=== PATIENT | male | born 1990 | race Caucasian/White ===

== ENCOUNTER 2016-12-10 12:18 | Emergency (ER) | payer OTHER ==
[2016-12-10 12:51] VITALS: BP 138/69; PULSE 84; RESP 16; TEMP 99.2
--- NOTE | 2016-12-10 13:15 | ED ---
Upper Extremity HPI - General Chief Complaint: Extremity Injury, Upper Stated Complaint: Fall from Ladder 2 days ago Time Seen by Provider: 12/10/16 13:00 Source: patient Mode of arrival: ambulatory Limitations: no limitations - History of Present Illness Initial Comments: This is a pleasant 26-year-old male who presents emergency department after injuring his right shoulder when he fell off a ladder on Wednesday. He states he put his hand out to catch himself and now has pain in the anterior aspect of the right shoulder which is sharp in nature. Pain is increased with movement. Patient denies any proximal or distal pain. No distal paresthesias. No other orthopedic injuries. No neck pain. There is no head injury. He denies any chest pain or shortness of breath. Patient has had some problems with the shoulder previously. Patient states she's been using icy hot for pain. He does state that the injury was work-related. Patient is right-hand dominant. MD Complaint: Injury to:: right, shoulder - Related Data Previous Rx's Medication Instructions Recorded Levofloxacin [Levaquin] 500 mg PO DAILY #9 tab 02/23/15 Acetaminophen-Codeine 300-30mg 1 each PO Q4H PRN #20 tablet 12/10/16 [Tylenol w/codeine #3] Naproxen [Naprosyn] 500 mg PO Q12HR #24 tab 12/10/16 Allergies Allergy/AdvReac Type Severity Reaction Status Date / Time Penicillins Allergy Unknown Verified 12/10/16 12:48 Review of Systems ROS Statement: Those systems with pertinent positive or pertinent negative responses have been documented in the HPI. ROS Other: All systems not noted in ROS Statement are negative. Past Medical History Past Medical History: No Reported History History of Any Multi-Drug Resistant Organisms: None Reported Past Surgical History: No Surgical Hx Reported Past Psychological History: No Psychological Hx Reported Smoking Status: Current every day smoker Past Alcohol Use History: None Reported Past Drug Use History: None Reported General Exam - General Exam Comments Initial Comments: Well-developed, well-nourished 26-year-old male in no distress Limitations: no limitations General appearance: alert, in no apparent distress Head exam: Present: atraumatic, normocephalic, normal inspection Eye exam: Present: normal appearance, EOMI. Absent: scleral icterus, conjunctival injection, periorbital swelling ENT exam: Present: normal exam Neck exam: Present: normal inspection. Absent: tenderness, meningismus, lymphadenopathy Respiratory exam: Present: normal lung sounds bilaterally. Absent: respiratory distress, wheezes, rales, rhonchi, stridor Cardiovascular Exam: Present: regular rate, normal rhythm, normal heart sounds. Absent: systolic murmur, diastolic murmur, rubs, gallop, clicks GI/Abdominal exam: Present: soft. Absent: distended, tenderness, guarding, rebound, rigid Extremities exam: Present: normal inspection, full ROM (With pain), normal capillary refill, other (Patient does have tenderness near the right before meals joint. However there is no evidence of step-off or crepitus). Absent: tenderness, pedal edema, joint swelling, calf tenderness Back exam: Present: normal inspection Neurological exam: Present: alert, oriented X3, CN II-XII intact Psychiatric exam: Present: normal affect, normal mood Skin exam: Present: warm, dry, intact, normal color. Absent: rash Course Vital Signs 12/10/16 12:48 Temperature 99.2 F Pulse Rate 84 Respiratory 16 Rate Blood Pressure 138/69 O2 Sat by Pulse 99 Oximetry Medical Decision Making - Medical Decision Making Plain film x-ray of the right shoulder read by me reveals no acute pathology. There is no dislocation. No foreign body. No fracture. Awaiting radiology interpretation I did review all findings with the patient. Patient understands. We'll treat the patient conservatively with anti-inflammatory medication, heat, and follow- up with orthopedics if needed patient knows he can return to the ER at anytime if any problems or difficulties arise or the symptomology worsens. Disposition Clinical Impression: Right shoulder strain Disposition: HOME SELF-CARE Condition: Good Instructions: Rotator Cuff Injury (ED) Additional Instructions: Follow-up with your regular physician for reevaluation. Follow-up with the orthopedic physician if symptoms do not improve. Return to the ER at anytime if any problems or difficulties arise. Apply moist heat 20 minutes on and off at least 4 times per day. Prescriptions: Acetaminophen-Codeine 300-30mg [Tylenol w/codeine #3] 1 each PO Q4H PRN #20 tablet PRN Reason: Pain Naproxen [Naprosyn] 500 mg PO Q12HR #24 tab Referrals: Hakan Camacho MD [Primary Care Provider] - 1-2 days Quique Yanez MD [Medical Doctor] - 12/15/16 Time of Disposition: 13:28
--- NOTE | 2016-12-10 13:40 | XR ---
EXAMINATION TYPE: XR shoulder limited RT DATE OF EXAM: 12/10/2016 1:14 PM COMPARISON: NONE HISTORY: Pain TECHNIQUE: Shoulder examined in 2 views. FINDINGS: The humeral head articulates with the glenoid. The acromio-clavicular junction is normal. No acute fractures or dislocations are evident. A follow up study can be performed 7-10 days from acute trauma for continued pain. IMPRESSION: 1. Normal 2 view Shoulder
== END 2016-12-10 13:38 | disposition home or self-care (01) ==
LOC: EC 12:18
DX: S46.911A Strain of unspecified muscle, fascia and tendon at shoulder and upper arm level, right arm, initial encounter (principal); F17.200 Nicotine dependence, unspecified, uncomplicated; Z88.0 Allergy status to penicillin; W11.XXXA Fall on and from ladder, initial encounter; Y99.0 Civilian activity done for income or pay
CPT/HCPCS: 99283

== ENCOUNTER 2020-04-08 | Emergency (ER) | payer OTHER ==
--- NOTE | 2020-04-08 13:16 | ED ---
General Adult HPI - General Chief complaint: Dental/Oral Stated complaint: abscess Time Seen by Provider: 04/08/20 13:06 Source: patient, RN notes reviewed, old records reviewed Mode of arrival: ambulatory Limitations: no limitations - History of Present Illness Initial comments: 30-year-old male with several days of facial swelling, tooth pain. Patient has fractured tooth 11 and 12. This is the site of pain and inflammation. Denies fever. He is otherwise healthy, no history of diabetes. No fevers. No chills. - Related Data Previous Rx's Medication Instructions Recorded Levofloxacin [Levaquin] 500 mg PO DAILY #9 tab 02/23/15 Acetaminophen-Codeine 300-30mg 1 each PO Q4H PRN #20 tablet 12/10/16 [Tylenol w/codeine #3] Naproxen [Naprosyn] 500 mg PO Q12HR #24 tab 12/10/16 Clindamycin [Cleocin] 450 mg PO Q8HR #21 cap 04/08/20 Ibuprofen [Motrin] 600 mg PO Q8HR PRN #24 tab 04/08/20 Allergies Allergy/AdvReac Type Severity Reaction Status Date / Time Penicillins Allergy Unknown Verified 04/08/20 12:56 Review of Systems ROS Statement: Those systems with pertinent positive or pertinent negative responses have been documented in the HPI. ROS Other: All systems not noted in ROS Statement are negative. Past Medical History Past Medical History: No Reported History History of Any Multi-Drug Resistant Organisms: None Reported Past Surgical History: No Surgical Hx Reported Past Psychological History: No Psychological Hx Reported Smoking Status: Current every day smoker, Vaper Past Alcohol Use History: None Reported Past Drug Use History: None Reported General Exam Limitations: no limitations General appearance: alert, in no apparent distress Head exam: Present: atraumatic, normocephalic Eye exam: Present: normal appearance ENT exam: Present: other (Mentation, fractured tooth #11 and 10 with inflammation at the gumline, no drainable abscess. Minimal facial swelling and lymphadenopathy, submandibular) Neck exam: Present: lymphadenopathy (Left submandibular) Respiratory exam: Present: normal lung sounds bilaterally. Absent: respiratory distress, wheezes Cardiovascular Exam: Present: regular rate, normal rhythm GI/Abdominal exam: Present: soft. Absent: distended, tenderness Course Vital Signs 04/08/20 12:55 Temperature 97.9 F Pulse Rate 72 Respiratory 20 Rate Blood Pressure 147/92 O2 Sat by Pulse 98 Oximetry Medical Decision Making - Medical Decision Making Patient is started on clindamycin he does have a penicillin ALLERGY. He is also given Motrin for pain. He is encouraged to follow-up with his dentist as soon as possible. Disposition Clinical Impression: Dental abscess, Fracture of tooth Disposition: HOME SELF-CARE Condition: Good Instructions (If sedation given, give patient instructions): Toothache (ED), Dental Abscess (ED) Additional Instructions: Please follow up with your dentist as soon as possible. Prescriptions: Clindamycin [Cleocin] 450 mg PO Q8HR #21 cap Ibuprofen [Motrin] 600 mg PO Q8HR PRN #24 tab PRN Reason: Pain Is patient prescribed a controlled substance at d/c from ED?: No Referrals: None,Stated [Primary Care Provider] - 1-2 days Time of Disposition: 13:16
== END 2020-04-08 13:32 | disposition home or self-care (01) ==
CPT/HCPCS: 99283

== ENCOUNTER 2021-12-19 20:19 | Inpatient (IN) | payer OTHER ==
[2021-12-19] MEDS ORDERED: ACETAMINOPHEN TAB 500 MG TAB PO STA (20:45)
[2021-12-19] MEDS ORDERED: IPRATROPIUM-ALBUTEROL 3 ML NEB INHALATION STA ×2 (20:47→23:36)
--- NOTE | 2021-12-19 20:51 | ED ---
URI HPI - General Chief Complaint: Upper Respiratory Infection Stated Complaint: SOB,Fever Time Seen by Provider: 12/19/21 20:31 Source: patient, RN notes reviewed Mode of arrival: ambulatory Limitations: no limitations - History of Present Illness Initial Comments: This is a pleasant 31-year-old male who complains of a fever, cough, shortness of breath for one week. Patient also complaining of body aches. Shaking chills. Patient has a history of bacterial pneumonia. Patient COVID-19 last fall. Patient is a cigarette smoker. No headache, no changes in vision or hearing, no sore throat or difficulty with speech, no neck pain, no shortness of breath, no abdominal pain, no nausea or vomiting, no changes in urination or bowel movements, no numbness or tingling, no extremity pain, no skin rashes or lesions. Cough is nonproductive MD Complaint: fever, cough - Related Data Home Medications Medication Instructions Recorded Confirmed Acetaminophen [Tylenol] 1,000 mg PO Q6HR PRN 12/19/21 12/19/21 Previous Rx's Medication Instructions Recorded Ibuprofen [Motrin] 600 mg PO Q8HR PRN #24 tab 04/08/20 Allergies Allergy/AdvReac Type Severity Reaction Status Date / Time Penicillins Allergy Unknown Verified 12/19/21 21:56 Childhood Review of Systems ROS Statement: Those systems with pertinent positive or pertinent negative responses have been documented in the HPI. ROS Other: All systems not noted in ROS Statement are negative. Past Medical History Past Medical History: No Reported History History of Any Multi-Drug Resistant Organisms: None Reported Past Surgical History: No Surgical Hx Reported Past Psychological History: No Psychological Hx Reported Smoking Status: Current every day smoker, Vaper Past Alcohol Use History: Occasional Past Drug Use History: None Reported General Exam - General Exam Comments Initial Comments: Patient appears to be ill but not toxic. Patient in no respiratory distress as I enter the room. Cranial nerves II through XII intact. Capillary refill less than 2 seconds. Limitations: no limitations General appearance: alert, in distress Head exam: Present: atraumatic, normocephalic, normal inspection Eye exam: Present: normal appearance, PERRL, EOMI. Absent: scleral icterus, conjunctival injection, periorbital swelling ENT exam: Present: normal exam, mucous membranes moist Neck exam: Present: normal inspection, full ROM. Absent: tenderness, meni ngismus, lymphadenopathy Respiratory exam: Present: rhonchi (Scattered bilateral), chest wall tenderness. Absent: respiratory distress, wheezes, rales, stridor, accessory muscle use, decreased breath sounds, prolonged expiratory Cardiovascular Exam: Present: normal rhythm, tachycardia, normal heart sounds. Absent: systolic murmur, diastolic murmur, rubs, gallop, clicks GI/Abdominal exam: Present: soft, normal bowel sounds. Absent: distended, tenderness, guarding, rebound, rigid Extremities exam: Present: normal inspection, full ROM, normal capillary refill. Absent: tenderness, pedal edema, joint swelling, calf tenderness Back exam: Present: normal inspection Neurological exam: Present: alert, oriented X3, CN II-XII intact Psychiatric exam: Present: normal affect, normal mood Skin exam: Present: warm, dry, intact, normal color. Absent: rash Course Vital Signs 12/19/21 12/19/21 12/19/21 20:23 21:38 21:49 Temperature 101.3 F H Pulse Rate 108 H 96 96 Respiratory 20 Rate Blood Pressure 129/76 O2 Sat by Pulse 97 Oximetry 12/19/21 12/19/21 12/19/21 22:00 23:00 23:45 Temperature 99.4 F 98.9 F Pulse Rate 105 H 90 92 Respiratory 24 20 Rate Blood Pressure 129/91 127/87 O2 Sat by Pulse 95 97 Oximetry 12/19/21 23:57 Temperature Pulse Rate 96 Respiratory Rate Blood Pressure O2 Sat by Pulse Oximetry - Reevaluation(s) Reevaluation #1: 12/19/21 23:03 Patient reevaluated and is currently unchanged. We'll order a breathing treatment. Antibiotics ordered for pneumonia protocol. Patient has multifocal pneumonia. - Consultations Consultation #1: Patient will be admitted to Dr. Hill with consultation for pulmonary. Antibiotics, breathing treatments ordered. Admission for multilobar pneumonia Medical Decision Making - Medical Decision Making Patient presents symptomology consistent with viral respiratory infection to include body aches, fever, shaking chills and nonproductive cough. Patient states he occasionally will cough up some sputum but is a cigarette smoker. History of COVID-19 last fall as well as previous bacterial pneumonia. The case was discussed in detail with ED attending physician. Presentation, findings, treatment plan discussed in detail. Dr. Odell We'll admit the patient to Dr. Hill for further evaluation. Consultation for pulmonary. Multifocal pneumonia. Stressed out findings with the patient. All questions answered. Patient endorsed to the ED attending physician at 3 AM. Awaiting callback from the admitting physician. - Lab Data Result diagrams: 12/19/21 21:01 12/19/21 21:01 Lab Results 12/19/21 12/19/21 12/19/21 Range/Units 21:01 21: 21: WBC 9.9 (3.8-10.6) k/uL RBC 4.32 (4.30-5.90) m/uL Hgb 13.9 (13.0-17.5) gm/dL Hct 39.5 (39.0-53.0) % MCV 91.4 (80.0-100.0) fL MCH 32.2 (25.0-35.0) pg MCHC 35.2 (31.0-37.0) g/dL RDW 13.5 (11.5-15.5) % Plt Count 235 (150-450) k/uL MPV 8.4 Neutrophils % 80 % Lymphocytes % 12 % Monocytes % 5 % Eosinophils % 1 % Basophils % 1 % Neutrophils # 8.0 H (1.3-7.7) k/uL Lymphocytes # 1.1 (1.0-4.8) k/uL Monocytes # 0.5 (0-1.0) k/uL Eosinophils # 0.1 (0-0.7) k/uL Basophils # 0.1 (0-0.2) k/uL Manual Slide Review Performed Toxic Granulation Present Poikilocytosis (manual Present Sodium 135 L (137-145) mmol/L Potassium 3.2 L (3.5-5.1) mmol/L Chloride 103 (98-107) mmol/L Carbon Dioxide 27 (22-30) mmol/L Anion Gap 5 mmol/L BUN 17 (9-20) mg/dL Creatinine 0.86 (0.66-1.25) mg/dL Est GFR (CKD-EPI)AfAm >90 (>60 ml/min/1.73 sqM) Est GFR (CKD-EPI)NonAf >90 (>60 ml/min/1.73 sqM) Glucose 111 H (74-99) mg/dL Plasma Lactic Acid Yanick 1.1 (0.7-2.0) mmol/L Calcium 8.2 L (8.4-10.2) mg/dL Total Bilirubin 0.5 (0.2-1.3) mg/dL AST 78 H (17-59) U/L ALT 74 H (4-49) U/L Alkaline Phosphatase 104 (38-126) U/L C-Reactive Protein (<1.0) mg/dL Total Protein 5.5 L (6.3-8.2) g/dL Albumin 2.9 L (3.5-5.0) g/dL Coronavirus (PCR) (Not Detectd) Influenza Type A RNA (Not Detectd) Influenza Type B (PCR) (Not Detectd) 12/19/21 12/19/21 12/19/21 Range/Units 21:01 21:01 21:01 WBC (3.8-10.6) k/uL RBC (4.30-5.90) m/uL Hgb (13.0-17.5) gm/dL Hct (39.0-53.0) % MCV (80.0-100.0) fL MCH (25.0-35.0) pg MCHC (31.0-37.0) g/dL RDW (11.5-15.5) % Plt Count (150-450) k/uL MPV Neutrophils % % Lymphocytes % % Monocytes % % Eosinophils % % Basophils % % Neutrophils # (1.3-7.7) k/uL Lymphocytes # (1.0-4.8) k/uL Monocytes # (0-1.0) k/uL Eosinophils # (0-0.7) k/uL Basophils # (0-0.2) k/uL Manual Slide Review Toxic Granulation Poikilocytosis (manual Sodium (137-145) mmol/L Potassium (3.5-5.1) mmol/L Chloride (98-107) mmol/L Carbon Dioxide (22-30) mmol/L Anion Gap mmol/L BUN (9-20) mg/dL Creatinine (0.66-1.25) mg/dL Est GFR (CKD-EPI)AfAm (>60 ml/min/1.73 sqM) Est GFR (CKD-EPI)NonAf (>60 ml/min/1.73 sqM) Glucose (74-99) mg/dL Plasma Lactic Acid Yanick (0.7-2.0) mmol/L Calcium (8.4-10.2) mg/dL Total Bilirubin (0.2-1.3) mg/dL AST (17-59) U/L ALT (4-49) U/L Alkaline Phosphatase (38-126) U/L C-Reactive Protein 23.6 H (<1.0) mg/dL Total Protein (6.3-8.2) g/dL Albumin (3.5-5.0) g/dL Coronavirus (PCR) Not Detected (Not Detectd) Influenza Type A RNA Not Detected (Not Detectd) Influenza Type B (PCR) Not Detected (Not Detectd) - Radiology Data Radiology results: report reviewed, image reviewed Disposition Clinical Impression: Multifocal pneumonia, Cigarette smoker, Hypokalemia Disposition: ADMITTED IP TO THIS [facility] Time of Disposition: 23:44
[2021-12-19 21:17] LABS: Basophils # (A) 0.1 k/uL (0-0.2); Basophils % (A) 1 %; Eosinophils # (A) 0.1 k/uL (0-0.7); Eosinophils % (A) 1 %; HCT 39.5 % (39.0-53.0); HGB 13.9 gm/dL (13.0-17.5); Lymphocytes # (A) 1.1 k/uL (1.0-4.8); Lymphocytes % (A) 12 %; MCH 32.2 pg (25.0-35.0); MCHC 35.2 g/dL (31.0-37.0); MCV 91.4 fL (80.0-100.0); Mean Platelet Volume 8.4; Monocytes # (A) 0.5 k/uL (0-1.0); Monocytes % (A) 5 %; Neutrophils % (A) 80 %; Platelet Count 235 k/uL (150-450); RBC 4.32 m/uL (4.30-5.90); RDW 13.5 % (11.5-15.5); WBC 9.9 k/uL (3.8-10.6)
[2021-12-19 21:27] LABS: ALT 74 U/L (4-49); AST 78 U/L (17-59); African American GFR (CKD) >90 (>60 ml/min/1.73 sqM); Albumin 2.9 g/dL (3.5-5.0); Alkaline Phosphatase 104 U/L (38-126); Anion Gap 5 mmol/L; Blood Urea Nitrogen 17 mg/dL (9-20); Calcium 8.2 mg/dL (8.4-10.2); Carbon Dioxide 27 mmol/L (22-30); Chloride 103 mmol/L (98-107); Glucose 111 mg/dL (74-99); Non-African American GFR(CKD) >90 (>60 ml/min/1.73 sqM); Potassium 3.2 mmol/L (3.5-5.1); Sodium 135 mmol/L (137-145); Total Bilirubin 0.5 mg/dL (0.2-1.3); Total Protein 5.5 g/dL (6.3-8.2)
[2021-12-19] MEDS: SODIUM CHLORIDE 0.9% 500 ML 500 ML IV SCH ×2 (21:29→22:27)
[2021-12-19 21:33] LABS: Poikilocytosis (M) Present; Toxic Granulation Present
--- NOTE | 2021-12-19 21:38 | XR ---
EXAMINATION TYPE: XR chest 2V DATE OF EXAM: 12/19/2021 9:03 PM COMPARISON: 02/23/2015 TECHNIQUE: XR chest 2V Frontal and lateral views of the chest. CLINICAL INDICATION:Male, 31 years old with history of cough; FINDINGS: Lungs/Pleura: Airspace opacities most pronounced in the left but also thought to be present in the ri ght lower lobe. Pulmonary vascularity: Unremarkable. Heart/mediastinum: Cardiomediastinal silhouette is unremarkable. Musculoskeletal: No acute osseous pathology. IMPRESSION: Multifocal pneumonia.
[2021-12-19] MEDS ORDERED: PNEUMONIA PROTOCOL UTILIZED 1 EACH MISC PO PRN (23:00)
[2021-12-19] MEDS ORDERED: Potassium Replacement Protocol 1 EACH MISC MISCELLANE PRN (23:37)
[2021-12-19] MEDS ORDERED: ALBUTEROL NEBULIZED 2.5 MG/3 ML INHALATION PRN (23:39)
[2021-12-19] MEDS: SODIUM CHLORIDE 0.9% 1,000 ML IV SCH (23:52)
[2021-12-19] MEDS: ENOXAPARIN 40 MG/0.4 ML SYRINGE SQ SCH (23:58)
[2021-12-20] MEDS: POTASSIUM CHLORIDE ER 20 MEQ TAB.ER PO SCH ×2 (00:12→01:49)
[2021-12-20 06:38] LABS: HCT 35.9 % (39.0-53.0); HGB 12.3 gm/dL (13.0-17.5); MCH 31.5 pg (25.0-35.0); MCHC 34.3 g/dL (31.0-37.0); MCV 91.8 fL (80.0-100.0); Mean Platelet Volume 7.9; Platelet Count 203 k/uL (150-450); RBC 3.91 m/uL (4.30-5.90); RDW 12.9 % (11.5-15.5); WBC 9.6 k/uL (3.8-10.6)
[2021-12-20 06:57] LABS: ALT 67 U/L (4-49); AST 66 U/L (17-59); African American GFR (CKD) >90 (>60 ml/min/1.73 sqM); Albumin 2.5 g/dL (3.5-5.0); Alkaline Phosphatase 85 U/L (38-126); Anion Gap 6 mmol/L; Blood Urea Nitrogen 16 mg/dL (9-20); Calcium 7.7 mg/dL (8.4-10.2); Carbon Dioxide 26 mmol/L (22-30); Chloride 105 mmol/L (98-107); Glucose 102 mg/dL (74-99); Non-African American GFR(CKD) >90 (>60 ml/min/1.73 sqM); Potassium 3.2 mmol/L (3.5-5.1); Sodium 137 mmol/L (137-145); Total Bilirubin 0.5 mg/dL (0.2-1.3)
[2021-12-20 07:20] LABS: Band Neutrophils % 7 %; Lymphocytes # (M) 1.06 k/uL (1.0-4.8); Metamyelocytes # (M) 0.29 k/uL (0); Metamyelocytes % 3 %; Monocytes # (M) 1.15 k/uL (0-1.0); Neutrophils % (M) 67 %; Nucleated Red Blood Cells 0 /100 WBC (0-0); Total Cells Counted 100
[2021-12-20] MEDS: IPRATROPIUM-ALBUTEROL 3 ML NEB INHALATION SCH ×4 (07:36→20:29)
--- NOTE | 2021-12-20 07:44 | XR ---
EXAMINATION TYPE: XR chest 2V DATE OF EXAM: 12/20/2021 COMPARISON: Chest x-ray 12/19/2021 HISTORY: Pneumonia TECHNIQUE: Frontal and lateral views of the chest are obtained. FINDINGS: Bilateral airspace disease is again seen. There is no evident pneumothorax or pleural effu taylor, cardiac mediastinal silhouette is stable. Bones are unchanged. IMPRESSION: Bilateral pneumonia
[2021-12-20] MEDS ORDERED: ALBUTEROL NEBULIZED 2.5 MG/3 ML INHALATION SCH (08:00)
[2021-12-20] MEDS ORDERED: AZITHROMYCIN 500 MG TAB PO SCH (09:00)
[2021-12-20] MEDS: SODIUM CHLORIDE 0.9% 1,000 ML IV SCH ×2 (09:20→18:18)
[2021-12-20] MEDS: AZITHROMYCIN 500 MG TAB PO SCH (09:20)
[2021-12-20] MEDS: BENZOCAINE/MENTHOL LOZENG 1 EACH LOZENGE MUCOUS MEM PRN ×2 (12:58→18:23)
--- NOTE | 2021-12-20 14:32 | P.CNPUL ---
History of Present Illness Consult date: 12/20/21 Requesting physician: Hakan Hill Reason for consult: dyspnea, pneumonia, abnormal CXR/CT Chief complaint: Shortness of breath, cough, congestion History of present illness: This a very pleasant 31-year-old male patient with no primary care provider, no significant medical history. He does carry a 15 year smoking history at 1 pack per day. He also states he was hospitalized as a child on chronic multiple occasions for pneumonia. He presented here to the emergency room yesterday with increasing shortness of breath cough and congestion, bodyaches fever and chills for 8 days prior to arrival. He denied any significant sick contacts or travel. White count 9.6. Hemoglobin 12.3. Platelets 203. Sodium 137. Potassium 3.2. Chloride 105. Bicarb 26. BUN 16. Creatinine 0.8. Lactic acid 1.1. AST 66, ALT 67. Pro-calcitonin 0.61. Influenza screen negative. Coronavirus by PCR ne gative. Legionella antigen is pending. He's been initiated on ceftriaxone and azithromycin along with bronchodilators. He is seen today in consultation on the regular medical floor. He is currently sitting up in a chair at the bedside. Awake and alert in no acute distress. Maintaining O2 saturations in the 90s on room air. He's been afebrile. Slightly tachycardic. Sputum culture pending. Review of Systems REVIEW OF SYSTEMS: CONSTITUTIONAL: Positive for fever and chills. Denies any recent significant weight loss or weight gain. EYES: Denies change in vision. EARS, NOSE, MOUTH, THROAT: Denies headaches, denies sore throat. CARDIOVASCULAR: Denies chest pain, palpitations or syncopal episodes. RESPIRATORY: Positive for shortness of breath, cough, congestion no hemoptysis. GASTROINTESTINAL: Denies change in appetite, denies abdominal pain GENITOURINARY: Denies hematuria, denies infections. MUSKULOSKELETAL: Denies pain, denies swelling. INTEGUMENTARY: Denies rash, denies eczema. NEUROLOGICAL: Denies recent memory loss, no recent seizure activity. PSYCHIATRIC: Denies anxiety, denies depression. HEMATOLOGIC/LYMPHATIC: Denies anemia, denies enlarged lymph nodes. Past Medical History Past Medical History: No Reported History Additional Past Medical History / Comment(s): COVID Fall 2020, pneumonia History of Any Multi-Drug Resistant Organisms: None Reported Past Surgical History: No Surgical Hx Reported Past Anesthesia/Blood Transfusion Reactions: No Reported Reaction Past Psychological History: No Psychological Hx Reported Smoking Status: Current every day smoker, Vaper Past Alcohol Use History: Occasional Past Drug Use History: None Reported Medications and Allergies Home Medications Medication Instructions Recorded Confirmed Type Ibuprofen [Motrin] 600 mg PO Q8HR PRN #24 tab 04/08/20 12/19/21 Rx Acetaminophen [Tylenol] 1,000 mg PO Q6HR PRN 12/19/21 12/19/21 History Allergies Allergy/AdvReac Type Severity Reaction Status Date / Time Penicillins Allergy Unknown Verified 12/19/21 21:56 Childhood Physical Exam Vitals: Vital Signs Temp Pulse Pulse Resp BP BP Pulse Ox 12/20/21 11:20 70 18 12/20/21 11:12 72 18 12/20/21 08:00 98.6 F 102 H 16 144/83 99 12/20/21 07:45 74 18 12/20/21 07:36 84 18 96 12/20/21 06:00 98.7 F 79 20 129/85 97 12/20/21 04:00 87 20 128/84 97 12/19/21 23:57 96 12/19/21 23:45 92 12/19/21 23:00 98.9 F 90 20 127/87 97 12/19/21 22:00 99.4 F 105 H 24 129/91 95 12/19/21 21:49 96 12/19/21 21:38 96 12/19/21 20:23 101.3 F H 108 H 20 129/76 97 Intake and Output 12/19/21 12/20/21 12/20/21 22:59 06:59 14:59 Other: # Voids 1 Weight 104.326 kg 104.326 kg GENERAL EXAM: Alert, active, pleasant 31-year-old gentleman, on room air, comfortable in no apparent distress. HEAD: Normocephalic. EYES: Normal reaction of pupils, equal size. NOSE: Clear with pink turbinates. THROAT: No erythema or exudates. NECK: No masses, no JVD. CHEST: No chest wall deformity. LUNGS: Equal air entry with coarse rhonchi bilaterally. CVS: S1 and S2 normal with no audible murmur, regular rhythm. ABDOMEN: No hepatosplenomegaly, normal bowel sounds, no guarding or rigidity. SPINE: No scoliosis or deformity SKIN: No rashes CENTRAL NERVOUS SYSTEM: No focal deficits, tone is normal in all 4 extremities. EXTREMITIES: There is no peripheral edema. No clubbing, no cyanosis. Peripheral pulses are intact. Results - Laboratory Findings CBC and BMP: 12/20/21 06:24 12/20/21 06:24 Abnormal lab findings: Abnormal Labs 12/19/21 12/19/21 12/19/21 21:01 21:01 21:01 RBC Hgb Hct Neutrophils # 8.0 H Monocytes # (Manual) Metamyelocytes # (Man) Sodium 135 L Potassium 3.2 L Glucose 111 H Calcium 8.2 L AST 78 H ALT 74 H C-Reactive Protein Total Protein 5.5 L Albumin 2.9 L Procalcitonin 0.61 H 12/19/21 12/20/21 12/20/21 21:01 06:24 06:24 RBC 3.91 L Hgb 12.3 L Hct 35.9 L Neutrophils # Monocytes # (Manual) 1.15 H Metamyelocytes # (Man) 0.29 H Sodium Potassium 3.2 L Glucose 102 H Calcium 7.7 L AST 66 H ALT 67 H C-Reactive Protein 23.6 H Total Protein 5.0 L Albumin 2.5 L Procalcitonin - Diagnostic Findings Chest x-ray: image reviewed Assessment and Plan Assessment: 1 Acute community-acquired pneumonia. Influenza screen negative. COVID-19 screen negative. Legionella antigen pending. Sputum culture pending. 2 History of hospitalizations for pneumonia as a child 3 Chronic and ongoing tobacco dependence of 10 years Plan: The patient was seen and evaluated Chest x-ray and labs reviewed Continue ceftriaxone and azithromycin Continue bronchodilators Educated regarding the importance of complete smoking cessation NicoDerm patch will be offered Follow-up chest x-ray in the a.m. We will continue to follow and make further recommendations based on his clinical status I have personally seen and examined the patient, performed the documentation and the assessment and plan as written. Number of minutes spent on the visit: 20.
[2021-12-20] MEDS: NICOTINE 14MG/24HR PATCH TRANSDERM SCH (15:03)
[2021-12-20] MEDS ORDERED: IBUPROFEN 400 MG TAB PO PRN (18:38)
[2021-12-20] MEDS: ACETAMINOPHEN TAB 325 MG TAB PO PRN (19:38)
[2021-12-20] MEDS: ENOXAPARIN 40 MG/0.4 ML SYRINGE SQ SCH (21:30)
--- NOTE | 2021-12-20 23:19 | P.HPIM ---
History of Present Illness H&P Date: 12/20/21 Chief Complaint: SOB Patient is a 31-year-old male without significant past medical history, history of COVID-19 in fall 2020, currently everyday smoker and occasional alcohol use presents to ER with complaints of increasing shortness of breath, cough congestion for the past 1 week. Patient is also having subjective fevers and chills and body aches. Denies any sputum production. Patient was also having diarrhea. Tmax 101. 3 on admission Chest x-ray showed multifocal pneumonia. Repeat chest x-ray this morning showed bilateral pneumonia. Laboratory data showed WBC 9.9 hemoglobin 13.9 and platelets 235 Sodium 135 potassium 3.2 chloride 103 bicarbonate 27 BUN 17 and creatinine 0.86 and lactic acid 1.1 AST 78 ALT 74 alk phos 104 CRP 23.6 and procalcitonin level is 0.61 COVID-19 PCR not detected. Legionella antigen negative. Influenza a and B- Review of Systems Constitutional: Patient does have subjective fever and chills. Generalized weakness and malaise. Abdomen: Patient denied nausea vomiting. Patient does have diarrhea and no abdominal pain. Cardiovascular: Patient denies any chest pain or short of breath no palpitations. Respiratory: Patient does have cough congestion and shortness of breath. Neurologic: Patient denied any numbness or tingling headache. Musculoskeletal: Patient denies any complaints of joint swelling or deformity. Skin: Negative Psychiatric: Negative Endocrine: No heat or cold intolerance. No recent weight gain. Genitourinary: No dysuria or hematuria. All other 14 point ROS negative except the above Past Medical History Past Medical History: No Reported History History of Any Multi-Drug Resistant Organisms: None Reported Past Surgical History: No Surgical Hx Reported Past Psychological History: No Psychological Hx Reported Smoking Status: Current every day smoker, V[employer] Past Alcohol Use History: Occasional Past Drug Use History: None Reported Medications and Allergies Home Medications Medication Instructions Recorded Confirmed Type Ibuprofen [Motrin] 600 mg PO Q8HR PRN #24 tab 04/08/20 12/19/21 Rx Acetaminophen [Tylenol] 1,000 mg PO Q6HR PRN 12/19/21 12/19/21 History Allergies Allergy/AdvReac Type Severity Reaction Status Date / Time Penicillins Allergy Unknown Verified 12/19/21 21:56 Childhood Physical Exam Vitals: Vital Signs Temp Pulse Pulse Resp BP BP Pulse Ox 12/20/21 08:00 98.6 F 102 H 16 144/83 99 12/20/21 07:45 74 18 12/20/21 07:36 84 18 96 12/20/21 06:00 98.7 F 79 20 129/85 97 12/20/21 04:00 87 20 128/84 97 12/19/21 23:57 96 12/19/21 23:45 92 12/19/21 23:00 98.9 F 90 20 127/87 97 12/19/21 22:00 99.4 F 105 H 24 129/91 95 12/19/21 21:49 96 12/19/21 21:38 96 12/19/21 20:23 101.3 F H 108 H 20 129/76 97 Intake and Output 12/19/21 12/20/21 12/20/21 22:59 06:59 14:59 Other: # Voids 1 Weight 104.326 kg PHYSICAL EXAMINATION: Patient is lying in the bed comfortably, no acute distress, awake alert and oriented.. HEENT: Normocephalic. Neck is supple. Pupils reactive. Nostrils clear. Oral cavity is moist. Neck reveals no JVD, carotid bruits, or thyromegaly. CHEST EXAMINATION: Trachea is central. Symmetrical expansion. Bilateral crackles and no wheezing. Coarse breath sounds.. CARDIAC: Normal S1, S2 with no gallops. No murmurs ABDOMEN: Soft. Bowel sounds normal. No organomegaly. No abdominal bruits. Extremities: reveal no edema. No clubbing or cyanosis Neurologically awake, alert, oriented x3 with well-coordinated movements. No focal deficits noted Skin: No rash or skin lesions. Psychiatric: Cooperative. Nonsuicidal Musculoskeletal: No joint swelling or deformity. Normal range of motion. Results CBC & Chem 7: 12/20/21 06:24 12/20/21 06:24 Labs: Abnormal Lab Results - Last 24 Hours (Table) 12/19/21 12/19/21 12/19/21 Range/Units 21:01 21:01 21:01 RBC (4.30-5.90) m/uL Hgb (13.0-17.5) gm/dL Hct (39.0-53.0) % Neutrophils # 8.0 H (1.3-7.7) k/uL Monocytes # (Manual) (0-1.0) k/uL Metamyelocytes # (Man) (0) k/uL Sodium 135 L (137-145) mmol/L Potassium 3.2 L (3.5-5.1) mmol/L Glucose 111 H (74-99) mg/dL Calcium 8.2 L (8.4-10.2) mg/dL AST 78 H (17-59) U/L ALT 74 H (4-49) U/L C-Reactive Protein (<1.0) mg/dL Total Protein 5.5 L (6.3-8.2) g/dL Albumin 2.9 L (3.5-5.0) g/dL Procalcitonin 0.61 H (0.02-0.09) ng/mL 12/19/21 12/20/21 12/20/21 Range/Units 21:01 06:24 06:24 RBC 3.91 L (4.30-5.90) m/uL Hgb 12.3 L (13.0-17.5) gm/dL Hct 35.9 L (39.0-53.0) % Neutrophils # (1.3-7.7) k/uL Monocytes # (Manual) 1.15 H (0-1.0) k/uL Metamyelocytes # (Man) 0.29 H (0) k/uL Sodium (137-145) mmol/L Potassium 3.2 L (3.5-5.1) mmol/L Glucose 102 H (74-99) mg/dL Calcium 7.7 L (8.4-10.2) mg/dL AST 66 H (17-59) U/L ALT 67 H (4-49) U/L C-Reactive Protein 23.6 H (<1.0) mg/dL Total Protein 5.0 L (6.3-8.2) g/dL Albumin 2.5 L (3.5-5.0) g/dL Procalcitonin (0.02-0.09) ng/mL Microbiology - Last 24 Hours (Table) 12/19/21 23:34 Sputum Culture - Preliminary Sputum Thrombosis Risk Factor Assmnt - DVT/VTE Prophylaxis DVT/VTE Prophylaxis: Pharmacologic Prophylaxis ordered Assessment and Plan Assessment: Acute bilateral pneumonia. Likely community-acquired. Strep pneumo antigen pending and urine Legionella antigen negative. Sputum culture is pending. Elevated CRP level 23.6 and procalcitonin level 0.61 History of multiple hospitalizations as a child with pneumonia Ongoing nicotine addiction. Patient uses vapor History of COVID-19 in fall 2020 Hypokalemia replaced. Mild transaminitis DVT prophylaxis with heparin subcu Plan: Patient will be continued on antibiotics in the form of ceftriaxone and azithromycin. Legionella antigen negative. Continue with duo nebs. Smoking cessation has been counseled extensively. Pulmonary is on board. Time with Patient: Greater than 30
[2021-12-21] MEDS: BENZOCAINE/MENTHOL LOZENG 1 EACH LOZENGE MUCOUS MEM PRN (00:26)
[2021-12-21] MEDS: ACETAMINOPHEN TAB 325 MG TAB PO PRN ×2 (04:16→08:43)
[2021-12-21] MEDS: SODIUM CHLORIDE 0.9% 1,000 ML IV SCH (05:48)
--- NOTE | 2021-12-21 07:19 | XR ---
EXAMINATION TYPE: XR chest 1V portable DATE OF EXAM: 12/21/2021 7:03 AM COMPARISON: Chest radiograph from one day prior. TECHNIQUE: XR chest 1V portable Frontal view of the chest. CLINICAL INDICATION:Male, 31 years old with history of Bilateral pneumonia; FINDINGS: Lungs/Pleura: Low lung volumes are present with similar appearance of multifocal airspace opacities g iven the low lung volumes. There is no evidence of pleural effusion, focal consolidation, or pneumoth orax. Pulmonary vascularity: Unremarkable. Heart/mediastinum: Cardiomediastinal silhouette is unremarkable. Musculoskeletal: No acute osseous pathology. IMPRESSION: Similar multifocal airspace opacities given phase of inspiration and low lung volumes..
[2021-12-21] MEDS: IPRATROPIUM-ALBUTEROL 3 ML NEB INHALATION SCH ×4 (07:55→21:21)
[2021-12-21] MEDS: AZITHROMYCIN 500 MG TAB PO SCH (08:37)
[2021-12-21] MEDS: NICOTINE 14MG/24HR PATCH TRANSDERM SCH (08:38)
[2021-12-21 09:22] LABS: African American GFR (CKD) 142.8 (60.0-200.0); Albumin/Globulin Ratio 1.44 (1.60-3.17); Anion Gap 14.2 mmol/L (10.00-18.00); BUN/Creat Ratio 15.63 Ratio (12.00-20.00); Blood Urea Nitrogen 11.3 mg/dL (9.0-27.0); Carbon Dioxide 21.1 mmol/L (20.0-27.5); Globulin 2.1 g/dL (1.6-3.3); Non-African American GFR(CKD) 123.2 (60.0-200.0); Potassium 3.5 mmol/L (3.5-5.5); Total Bilirubin 0.2 mg/dL (0.30-1.20); Total Protein 5.1 g/dL (6.2-8.2)
[2021-12-21 10:43] LABS: HCT 34.6 % (39.6-50.0); HGB 11.7 g/dL (13.0-17.0); MCHC 33.8 g/dL (32.0-37.0); MCV 91.5 fL (80.0-97.0); Mean Platelet Volume 9.9 fL (9.5-12.2); NRBC Per 100 WBC 0 /100 WBCS (0.0-0.0); Platelet Count 284 X 10*3/uL (140-440); RBC 3.78 X 10*6/uL (4.40-5.60); RDW 13.5 % (11.5-14.5); WBC 11.57 X 10*3/uL (4.50-10.00)
[2021-12-21 10:44] LABS: Basophils # (M) 0 X 10*3/uL (0.00-0.10); Eosinophils # (M) 0.12 X 10*3/uL (0.04-0.35); Lymphocytes # (M) 0.58 X 10*3/uL (0.90-5.00); Metamyelocytes % 2 % (0-0); Monocytes # (M) 1.74 X 10*3/uL (0.20-1.00); Myelocytes % 3 % (0-0); Neutrophils # (M) 8.56 X 10*3/uL (2.00-8.90); Neutrophils % (M) 74 %; RBC Morphology NORMAL
--- NOTE | 2021-12-21 15:06 | P.PN ---
Subjective Progress Note Date: 12/21/21 This a very pleasant 31-year-old male patient with no primary care provider, no significant medical history. He does carry a 15 year smoking history at 1 pack per day. He also states he was hospitalized as a child on chronic multiple occasions for pneumonia. He presented here to the emergency room yesterday with increasing shortness of breath cough and congestion, bodyaches fever and chills for 8 days prior to arrival. He denied any significant sick contacts or travel. White count 9.6. Hemoglobin 12.3. Platelets 203. Sodium 137. Potassium 3.2. Chloride 105. Bicarb 26. BUN 16. Creatinine 0.8. Lactic acid 1.1. AST 66, ALT 67. Pro-calcitonin 0.61. Influenza screen negative. Coronavirus by PCR negative. Legionella antigen is pending. He's been initiated on ceftriaxone and azithromycin along with bronchodilators. He is seen today in consultation on the regular medical floor. He is currently sitting up in a chair at the bedside. Awake and alert in no acute distress. Maintaining O2 saturations in the 90s on room air. He's been afebrile. Slightly tachycardic. Sputum culture pending. The patient is seen today 12/21/2021 in follow-up on the regular medical floor. He is currently resting comfortably in bed. Maintaining O2 saturations in the 90s on room air. Chest x-ray continues to show multifocal airspace opacities. No significant improvement. Legionella antigen was negative. Blood cultures reveal no growth. Sputum culture pending. White count 11.5. Hemoglobin 11.7. Sodium 141. Potassium 3.5. BUN 11. Creatinine 0.7. He is continued on ceftriaxone and bronchodilators. NicoDerm patch in place. Objective - Vital Signs Vital signs: Vital Signs Temp 98.1 F 12/21/21 08:00 Pulse 84 12/21/21 12:28 Resp 18 12/21/21 12:28 BP 132/86 12/21/21 08:00 Pulse Ox 95 12/21/21 08:00 Intake & Output 12/20/21 12/21/21 12/21/21 18:59 06:59 18:59 Weight 104.326 kg Other: # Voids 4 2 # Bowel Movements 0 - Exam GENERAL EXAM: Alert, pleasant 31-year-old male patient, on room air, comfortable in no apparent distress. HEAD: Normocephalic. EYES: Normal reaction of pupils, equal size. NOSE: Clear with pink turbinates. THROAT: No erythema or exudates. NECK: No masses, no JVD. CHEST: No chest wall deformity. LUNGS: Equal air entry with scattered rhonchi. CVS: S1 and S2 normal with no audible murmur, regular rhythm. ABDOMEN: No hepatosplenomegaly, normal bowel sounds, no guarding or rigidity. SPINE: No scoliosis or deformity SKIN: No rashes CENTRAL NERVOUS SYSTEM: No focal deficits, tone is normal in all 4 extremities. EXTREMITIES: There is no peripheral edema. No clubbing, no cyanosis. Peripheral pulses are intact. - Labs CBC & Chem 7: 12/21/21 04:55 12/21/21 04:55 Labs: Abnormal Lab Results - Last 24 Hours (Table) 12/21/21 12/21/21 Range/Units 04:55 04:55 WBC 11.57 H (4.50-10.00) X 10*3/uL RBC 3.78 L (4.40-5.60) X 10*6/uL Hgb 11.7 L (13.0-17.0) g/dL Hct 34.6 L (39.6-50.0) % Metamyelocytes % 2 H (0-0) % Myelocytes % 3 H (0-0) % Lymphocytes # (Manual) 0.58 L (0.90-5.00) X 10*3/uL Monocytes # (Manual) 1.74 H (0.20-1.00) X 10*3/uL Calcium 8.0 L (8.7-10.3) mg/dL Total Bilirubin 0.20 L (0.30-1.20) mg/dL AST 65 H (14-35) U/L ALT 81 H (10-49) U/L Total Protein 5.1 L (6.2-8.2) g/dL Albumin 3.0 L (3.8-4.9) g/dL Albumin/Globulin Ratio 1.44 L (1.60-3.17) g/dL Microbiology - Last 24 Hours (Table) 12/19/21 23:34 Gram Stain - Preliminary Sputum Sputum Culture - Preliminary 12/19/21 21:30 Blood Culture - Preliminary Blood No Growth after 24 hours 12/19/21 21:01 Blood Culture - Preliminary Blood No Growth after 24 hours Assessment and Plan Assessment: 1 Acute community-acquired pneumonia. Influenza screen negative. COVID-19 screen negative. Legionella antigen negative. Sputum culture pending. 2 History of hospitalizations for pneumonia as a child 3 Chronic and ongoing tobacco dependence of 10 years Plan: The patient was seen and evaluated Chest x-ray and labs reviewed Continue ceftriaxone Continue bronchodilators We will continue to follow I have personally seen and examined the patient, performed the documentation and the assessment and plan as written. Number of minutes spent on the visit: 10.
[2021-12-21] MEDS: ENOXAPARIN 40 MG/0.4 ML SYRINGE SQ SCH (20:02)
[2021-12-22] MEDS: SODIUM CHLORIDE 0.9% 1,000 ML IV SCH (00:59)
--- NOTE | 2021-12-22 01:55 | P.PN ---
Subjective Progress Note Date: 12/21/21 Patient is a 31-year-old male without significant past medical history, history of COVID-19 in fall 2020, currently everyday smoker and occasional alcohol use presents to ER with complaints of increasing shortness of breath, cough congestion for the past 1 week. Patient is also having subjective fevers and chills and body aches. Denies any sputum production. Patient was also having diarrhea. Tmax 101. 3 on admission Chest x-ray showed multifocal pneumonia. Repeat chest x-ray this morning showed bilateral pneumonia. Laboratory data showed WBC 9.9 hemoglobin 13.9 and platelets 235 Sodium 135 potassium 3.2 chloride 103 bicarbonate 27 BUN 17 and creatinine 0.86 and lactic acid 1.1 AST 78 ALT 74 alk phos 104 CRP 23.6 and procalcitonin level is 0.61 COVID-19 PCR not detected. Legionella antigen negative. Influenza a and B- 12/21/2021 Patient currently sitting on the side of the bed. Awake alert oriented x3. No complaints of chest pain. Shortness of breath is much improved. Currently on room air. Chest x-ray continues to show multifocal airspace disease. Legionella antigen is negative. No complaints of diarrhea. No nausea or vomiting. Sputum cultures pending at this time. Patient is being current on antibiotics of ceftriaxone and bronchodilators. Laboratory data showed WBC 11.4 hemoglobin 11.7 platelets 284 Sodium 141 potassium 3.5 chloride 105 bicarb is 21.1 BUN 11.3 and creatinine 0.7 AST 65 ALT 81 alk phos 92 and procalcitonin was 0.61. Pulmonary is on board. Blood cultures negative so far. Sputum cultures are pending. Current medications reviewed. Objective - Vital Signs Vital signs: Vital Signs Temp 98.4 F 12/21/21 14:00 Pulse 95 12/21/21 14:00 Resp 16 12/21/21 14:00 BP 128/80 12/21/21 14:00 Pulse Ox 94 L 12/21/21 14:00 Intake & Output 12/20/21 12/21/21 12/21/21 18:59 06:59 18:59 Weight 104.326 kg Other: # Voids 4 2 # Bowel Movements 0 - Exam PHYSICAL EXAMINATION: Patient is lying in the bed comfortably, no acute distress, awake alert and oriented.. HEENT: Normocephalic. Neck is supple. Pupils reactive. Nostrils clear. Oral cavity is moist. Neck reveals no JVD, carotid bruits, or thyromegaly. CHEST EXAMINATION: Trachea is central. Symmetrical expansion. 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 CARDIAC: Normal S1, S2 with no gallops. No murmurs ABDOMEN: Soft. Bowel sounds normal. No organomegaly. No abdominal bruits. Extremities: reveal no edema. No clubbing or cyanosis Neurologically awake, alert, oriented x3 with well-coordinated movements. No focal deficits noted Skin: No rash or skin lesions. Psychiatric: Cooperative. Nonsuicidal Musculoskeletal: No joint swelling or deformity. Normal range of motion. - Labs CBC & Chem 7: 12/21/21 04:55 12/21/21 04:55 Labs: Abnormal Lab Results - Last 24 Hours (Table) 12/21/21 12/21/21 Range/Units 04:55 04:55 WBC 11.57 H (4.50-10.00) X 10*3/uL RBC 3.78 L (4.40-5.60) X 10*6/uL Hgb 11.7 L (13.0-17.0) g/dL Hct 34.6 L (39.6-50.0) % Metamyelocytes % 2 H (0-0) % Myelocytes % 3 H (0-0) % Lymphocytes # (Manual) 0.58 L (0.90-5.00) X 10*3/uL Monocytes # (Manual) 1.74 H (0.20-1.00) X 10*3/uL Calcium 8.0 L (8.7-10.3) mg/dL Total Bilirubin 0.20 L (0.30-1.20) mg/dL AST 65 H (14-35) U/L ALT 81 H (10-49) U/L Total Protein 5.1 L (6.2-8.2) g/dL Albumin 3.0 L (3.8-4.9) g/dL Albumin/Globulin Ratio 1.44 L (1.60-3.17) g/dL Microbiology - Last 24 Hours (Table) 12/19/21 23:34 Gram Stain - Preliminary Sputum Sputum Culture - Preliminary 12/19/21 21:30 Blood Culture - Preliminary Blood No Growth after 24 hours 12/19/21 21:01 Blood Culture - Preliminary Blood No Growth after 24 hours Assessment and Plan Assessment: Acute bilateral pneumonia. Likely community-acquired. Strep pneumo antigen pending and urine Legionella antigen negative. Sputum culture is pending. Elevated CRP level 23.6 and procalcitonin level 0.61 History of multiple hospitalizations as a child with pneumonia Ongoing nicotine addiction. Patient uses vapor History of COVID-19 in fall 2020 Hypokalemia replaced. Mild transaminitis DVT prophylaxis with heparin subcu Plan: Patient will be continued on antibiotics in the form of ceftriaxone and azithromycin. Legionella antigen negative. Continue with duo nebs. Smoking cessation has been counseled extensively. Pulmonary is on board.
[2021-12-22] MEDS: NICOTINE 14MG/24HR PATCH TRANSDERM SCH (11:42)
--- NOTE | 2021-12-22 12:24 | P.PN ---
Subjective Progress Note Date: 12/22/21 Principal diagnosis: Shortness of breath This a very pleasant 31-year-old male patient with no primary care provider, no significant medical history. He does carry a 15 year smoking history at 1 pack per day. He also states he was hospitalized as a child on chronic multiple oc casions for pneumonia. He presented here to the emergency room yesterday with increasing shortness of breath cough and congestion, bodyaches fever and chills for 8 days prior to arrival. He denied any significant sick contacts or travel. White count 9.6. Hemoglobin 12.3. Platelets 203. Sodium 137. Potassium 3.2. Chloride 105. Bicarb 26. BUN 16. Creatinine 0.8. Lactic acid 1.1. AST 66, ALT 67. Pro-calcitonin 0.61. Influenza screen negative. Coronavirus by PCR negative. Legionella antigen is pending. He's been initiated on ceftriaxone and azithromycin along with bronchodilators. He is seen today in consultation on the regular medical floor. He is currently sitting up in a chair at the bedside. Awake and alert in no acute distress. Maintaining O2 saturations in the 90s on room air. He's been afebrile. Slightly tachycardic. Sputum culture pending. The patient is seen today 12/21/2021 in follow-up on the regular medical floor. He is currently resting comfortably in bed. Maintaining O2 saturations in the 90s on room air. Chest x-ray continues to show multifocal airspace opacities. No significant improvement. Legionella antigen was negative. Blood cultures reveal no growth. Sputum culture pending. White count 11.5. Hemoglobin 11.7. Sodium 141. Potassium 3.5. BUN 11. Creatinine 0.7. He is continued on ceftriaxone and bronchodilators. NicoDerm patch in place. On 12/22/2021 patient seen in follow-up on medical surgical floor. he states his breathing is improving. he is calm and comfortable, on room air with pulse ox of 98%, he is afebrile. No acute events overnight. No chest discomfort. No hemoptysis. Vital signs have been stable, his blood and sputum cultures have shown no growth, he remains on Rocephin for antibiotic coverage. His sats have been reviewed, with a total count is 1.5, hemoglobin is 11.7, electrolytes and renal profile are unremarkable. Sternal level on admission was 0.61. His COVID-19 influenza A and B Legionella urine antigen were negative Objective - Vital Signs Vital signs: Vital Signs Temp 97.9 F 12/22/21 01:00 Pulse 98 12/22/21 01:00 Resp 20 12/22/21 01:00 BP 129/86 12/22/21 01:00 Pulse Ox 98 12/22/21 01:00 Intake & Output 12/21/21 12/22/21 12/22/21 18:59 06:59 18:59 Other: # Voids 5 3 # Bowel Movements 0 - Exam GENERAL EXAM: Alert, very pleasant, 31-year-old white male on room air, with pulse ox of 98% comfortable in no apparent distress. HEAD: Normocephalic/atraumatic. EYES: Normal reaction of pupils, equal size. Conjunctiva pink, sclera white. NOSE: Clear with pink turbinates. THROAT: No erythema or exudates. NECK: No masses, no JVD, no thyroid enlargement, no adenopathy. CHEST: No chest wall deformity. Symmetrical expansion. LUNGS: Equal air entry with no crackles, wheeze, rhonchi or dullness. CVS: Regular rate and rhythm, normal S1 and S2, no gallops, no murmurs, no rubs ABDOMEN: Soft, nontender. No hepatosplenomegaly, normal bowel sounds, no guarding or rigidity. EXTREMITIES: No clubbing, no edema, no cyanosis, 2+ pulses and upper and lower extremities. MUSCULOSKELETAL: Muscle strength and tone normal. SPINE: No scoliosis or deformity SKIN: No rashes CENTRAL NERVOUS SYSTEM: Alert and oriented -3. No focal deficits, tone is normal in all 4 extremities. PSYCHIATRIC: Alert and oriented -3. Appropriate affect. Intact judgment and insight. - Labs CBC & Chem 7: 12/22/21 03:45 12/22/21 03:45 Labs: Microbiology - Last 24 Hours (Table) 12/19/21 23:34 Gram Stain - Final Sputum Sputum Culture - Final 12/19/21 21:30 Blood Culture - Preliminary Blood No Growth after 48 hours 12/19/21 21:01 Blood Culture - Preliminary Blood No Growth after 48 hours Assessment and Plan Plan: 1 Acute community-acquired pneumonia. Influenza screen negative. COVID-19 screen negative. Legionella antigen negative. Sputum culture pending. 2 History of hospitalizations for pneumonia as a child 3 Chronic and ongoing tobacco dependence of 10 years Plan: Follow-up chest x-ray today Continue current antibiotics Continue bronchodilators Patient is clinically stable, If chest x-ray shows improvement he can be considered for discharge home today to complete an oral course of antibiotics Outpatient follow-up with Dr. Aragon in the office in 7-10 days I have personally seen and examined the patient, performed the documentation and the assessment and plan as written. Number of minutes spent on the visit: [10] I have personally seen and examined the patient and reviewed the documentation. I performed a joint evaluation with the nurse practitioner in this evaluation was done more than 20 minutes. I fully agree with the documentation above and the plan of care. Repeat chest x-ray was done today and shows some improvement in the bilateral pulmonary consolidation/airspace disease. Patient is improved and the patient is currently on room air oxygen. The white cell count is at 10.9. Completed antibiotics for another 24 hours and switch this patient oral antibiotics within the next 24 hours/in a.m.possible discharge in the morning based on his condition. Time with Patient: Less than 30
[2021-12-22 13:07] LABS: African American GFR (CKD) >90 (>60 ml/min/1.73 sqM); Anion Gap 5 mmol/L; Blood Urea Nitrogen 10 mg/dL (9-20); Calcium 7.8 mg/dL (8.4-10.2); Carbon Dioxide 26 mmol/L (22-30); Chloride 109 mmol/L (98-107); Glucose 93 mg/dL (74-99); Non-African American GFR(CKD) >90 (>60 ml/min/1.73 sqM); Potassium 3.7 mmol/L (3.5-5.1); Sodium 140 mmol/L (137-145)
[2021-12-22 13:17] LABS: HCT 37.3 % (39.0-53.0); HGB 12.3 gm/dL (13.0-17.5); MCH 31.6 pg (25.0-35.0); MCHC 33.1 g/dL (31.0-37.0); MCV 95.5 fL (80.0-100.0); Mean Platelet Volume 8.2; Platelet Count 405 k/uL (150-450); RBC 3.91 m/uL (4.30-5.90); RDW 13.9 % (11.5-15.5); WBC 10.9 k/uL (3.8-10.6)
--- NOTE | 2021-12-22 13:19 | XR ---
EXAMINATION TYPE: XR chest 2V DATE OF EXAM: 12/22/2021 COMPARISON: 12/21/21 HISTORY: Follow-up pneumonia TECHNIQUE: Frontal and lateral views of the chest are obtained. FINDINGS: There is no focal air space opacity. Persistent but improving left perihilar left upper lobe infiltrate as well as infiltrate within the r ight lower lobe. The cardiac silhouette size is within normal limits. The osseous structures are grossly intact. IMPRESSION: 1. Persistent but improving left perihilar left upper lobe infiltrate as well as infiltrate within t he right lower lobe.
[2021-12-22 13:32] LABS: HIV 2 AB Non-Reactive (Non-Reactive); HIV AB P24 Non-Reactive (Non-Reactive); HIV P24 AG Non-Reactive (Non-Reactive)
[2021-12-22] MEDS: IPRATROPIUM-ALBUTEROL 3 ML NEB INHALATION SCH ×2 (14:59→17:10)
[2021-12-22 16:06] VITALS: BP 111/72; RESP 16; TEMP 98.5
[2021-12-22 16:31] LABS: Band Neutrophils % 4 %; Eosinophils # (M) 0.22 k/uL (0-0.7); Lymphocytes # (M) 3.92 k/uL (1.0-4.8); Monocytes # (M) 0.98 k/uL (0-1.0); Neutrophils % (M) 49 %; Nucleated Red Blood Cells 0 /100 WBC (0-0); Total Cells Counted 100
[2021-12-22 17:12] VITALS: PULSE 92
== END 2021-12-22 19:42 | disposition home or self-care (01) | DRG 195 ==
LOC: EC 20:19 → 4SSUR 12-20 00:50
PROVIDERS: ADMIT Family Medicine; ATTEND Family Medicine
DX: J18.9 Pneumonia, unspecified organism (principal); E87.6 Hypokalemia; R74.01 Elevation of levels of liver transaminase levels; F17.290 Nicotine dependence, other tobacco product, uncomplicated; Z20.822 Contact with and (suspected) exposure to COVID-19; Z86.16 Personal history of COVID-19; Z87.01 Personal history of pneumonia (recurrent); Z88.0 Allergy status to penicillin; Z71.6 Tobacco abuse counseling
CPT/HCPCS: 36415; 71045; 71046; 80048; 80053; 83605; 84145; 85025; 86140; 86317; 87040; 87070; 87205; 87390; 87449; 87502; 87635; 94640; 94760; 96361; 96365; 99285

== ENCOUNTER 2024-08-16 02:55 | Emergency (ER) | payer OTHER ==
[2024-08-16 03:00] VITALS: BP 118/87; PULSE 122; RESP 18; TEMP 97.7
--- NOTE | 2024-08-16 03:17 | ED ---
ENT HPI - General Chief complaint: Dental/Oral Stated complaint: Dental Infection Time Seen by Provider: 08/16/24 03:01 Source: patient Mode of arrival: ambulatory Limitations: no limitations - History of Present Illness Initial comments: 34-year-old male presenting with chief complaint of dental infection. Patient has been having pain to the left upper side with swelling. He was seen at urgent care on Wednesday morning and started on clindamycin due to penicillin allergy. He feels like his symptoms are getting worse. Have some swelling of arms cheek and is worried about any involvement with his eye. No fever. No trismus. No voice changes or drooling. No difficulty breathing or swallowing. - Related Data Home Medications Medication Instructions Recorded Confirmed Acetaminophen [Tylenol] 1,000 mg PO Q6HR PRN 12/19/21 12/19/21 Previous Rx's Medication Instructions Recorded Ibuprofen [Motrin] 600 mg PO Q8HR PRN #24 tab 04/08/20 clindamycin HCL [Cleocin] 450 mg PO TID 7 Days #64 cap 08/16/24 Allergies Allergy/AdvReac Type Severity Reaction Status Date / Time Penicillins Allergy Unknown Verified 08/16/24 02:56 Childhood Review of Systems ROS Statement: Those systems with pertinent positive or pertinent negative responses have been documented in the HPI. ROS Other: All systems not noted in ROS Statement are negative. Past Medical History Past Medical History: Pneumonia Additional Past Medical History / Comment(s): COVID Fall 2020, pneumonia History of Any Multi-Drug Resistant Organisms: None Reported Past Surgical History: No Surgical Hx Reported Past Anesthesia/Blood Transfusion Reactions: No Reported Reaction Past Psychological History: No Psychological Hx Reported Smoking Status: Current every day smoker Past Alcohol Use History: Occasional Past Drug Use History: None Reported General Exam Limitations: no limitations General appearance: alert, in no apparent distress Head exam: Present: atraumatic, normocephalic, normal inspection Eye exam: Present: normal appearance, EOMI Expanded Mouth exam: Present: tongue normal. Absent: drooling, trismus, muffled voice Teeth exam: Present: dental caries, fractured tooth #, dental tenderness #, gingival enlargement Throat exam: normal inspection Neck exam: Present: normal inspection. Absent: meningismus Respiratory exam: Absent: respiratory distress Cardiovascular Exam: Present: tachycardia Neurological exam: Present: alert, oriented X3 Psychiatric exam: Present: normal affect, normal mood Skin exam: Present: normal color Course Vital Signs 08/16/24 02:57 Temperature 97.7 F Pulse Rate 122 H Respiratory 18 Rate Blood Pressure 118/87 O2 Sat by Pulse 98 Oximetry Medical Decision Making - Medical Decision Making Was pt. sent in by a medical professional or institution (CARLOS Alvarado, CERAMICS TEST ENGINEER, urgent care, hospital, or long term...) When possible be specific @ -[No] Did you speak to anyone other than the patient for history (EMS, parent, family, police, friend...)? What history was obtained from this source @ -[No] Did you review nursing and triage notes (agree or disagree)? Why? @ -[I reviewed and agree with nursing and triage notes] Were old charts reviewed (outside hosp., previous admission, EMS record, old EKG, old radiological studies, urgent care reports/EKG's, long term records)? Report findings @ -[No old charts were reviewed] Differential Diagnosis (chest pain, altered mental status, abdominal pain women, abdominal pain men, vaginal bleeding, weakness, fever, dyspnea, syncope, headache, dizziness, GI bleed, back pain, seizure, CVA, palpatations, mental health, musculoskeletal)? @ -Differential includes toothache, dental abscess, Avtar's angina, periorbital cellulitis, this is not an all-inclusive list EKG interpreted by me (3pts min.). @ -[As above] X-rays interpreted by me (1pt min.). @ -[None done] CT interpreted by me (1pt min.). @ -[None done] U/S interpreted by me (1pt. min.). @ -[None done] What testing was considered but not performed or refused? (CT, X-rays, U/S, labs)? Why? @ -[None] What meds were considered but not given or refused? Why? @ -[None] Did you discuss the management of the patient with other professionals (professionals i.e. CARLOS Alvarado, CERAMICS TEST ENGINEER, lab, RT, psych nurse, psychiatric social worker supervisor, manager track, teacher, senior compliance officer, shoe parts caser)? Give summary @ -[No] Was smoking cessation discussed for >3mins.? @ -[No] Was critical care preformed (if so, how long)? @ -[No] Were there social determinants of health that impacted care today? How? (Homelessness, low income, unemployed, alcoholism, drug addiction, transportation, low edu. Level, literacy, decrease access to med. care, skilled nursing, rehab)? @ -[No] Was there de-escalation of care discussed even if they declined (Discuss DNR or withdrawal of care, Hospice)? DNR status @ -[No] What co-morbidities impacted this encounter? (DM, HTN, Smoking, COPD, CAD, Canc er, CVA, ARF, Chemo, Hep., AIDS, mental health diagnosis, sleep apnea, morbid obesity)? @ -[None] Was patient admitted / discharged? Hospital course, mention meds given and route, prescriptions, significant lab abnormalities, going to OR and other pertinent info. @ -34-year-old male presenting with chief complaint of worsening pain and swelling to his dental abscess. Started on clindamycin earlier in the day, has not been on antibiotics for 24 hours yet. He is concerned that it may be involving his eye. Patient has no pain or difficulty with extraocular motions. No proptosis. No periorbital erythema or swelling. No vision changes. No pain to the globe itself. On examination of the mouth there are 3 fractured and severely decayed teeth on the upper front/left side. There is a small area on the gum that I believe I could incise and drain, offered this to the patient but he declined. Patient is currently on clindamycin 300 mg 3 times daily, will increase to 450 mg 3 times daily. He will follow-up with dentist. Discharged. Follow-up with PCP. Report back to ER with any new or worsening symptoms. Discussed return parameters and answered all questions. Patient conveyed verbal understanding and agreed to the plan. I discussed this case in detail with my attending Dr. Hinkle Undiagnosed new problem with uncertain prognosis? @ -[No] Drug Therapy requiring intensive monitoring for toxicity (Heparin, Nitro, Insulin, Cardizem)? @ -[No] Were any procedures done? @ -[No] Diagnosis/symptom? @ -Dental abscess Acute, or Chronic, or Acute on Chronic? @ -Acute Uncomplicated (without systemic symptoms) or Complicated (systemic symptoms)? @ -Uncomplicated Side effects of treatment? @ -[No] Exacerbation, Progression, or Severe Exacerbation? @ -[No] Poses a threat to life or bodily function? How? (Chest pain, [place], [place], pneumonia, PE, COPD, DKA, ARF, appy, cholecystitis, CVA, Diverticulitis, Homicidal, Suicidal, threat to staff... and all critical care pts) @ -Threat with any infection, however seems to be low likelihood at this time Disposition Clinical Impression: Dental abscess Disposition: HOME SELF-CARE Condition: Good Instructions (If sedation given, give patient instructions): Dental Abscess (ED) Additional Instructions: Please follow up with the [facility] dental clinic. [facility] [employer] [place] [address]. Phone number for new patients or [phone] for existing patients. Prescriptions: clindamycin HCL [Cleocin] 450 mg PO TID 7 Days #64 cap Is patient prescribed a controlled substance at d/c from ED?: No Referrals: None,Stated [Primary Care Provider] - 1-2 days Time of Disposition: 03:17
[2024-08-16] MEDS: HYDROcodone/APAP 7.5-325MG 1 EACH TAB PO ONE (03:19)
[2024-08-16] MEDS: CLINDAMYCIN 150 MG CAP PO STA (03:19)
[2024-08-16] MEDS: KETOROLAC 15 MG/ML 1 ML VIAL IM STA (03:20)
== END 2024-08-16 03:29 | disposition home or self-care (01) ==
LOC: EC 02:55
DX: K04.7 Periapical abscess without sinus (principal); F17.200 Nicotine dependence, unspecified, uncomplicated; Z88.0 Allergy status to penicillin
CPT/HCPCS: 99283; 96372; J1885